=== PATIENT | female | born 1975 | race African-American/Black ===

== ENCOUNTER 2022-08-04 14:21 | Emergency (ER) | payer BC ==
[~2022-08-04] VITALS: Ht 160 cm; Wt 71.0 kg
[2022-08-04 14:38] VITALS: BP 191/95
[2022-08-04] MEDS ORDERED: ONDANSETRON HCL 4MG/2ML INJ IV STA (16:21)
[2022-08-04] MEDS ORDERED: SODIUM CHLORIDE 0.9% 1,000 ML IV ONE (16:30)
[2022-08-04 16:41] LABS: BASOPHILS % 0.4 % (0.0-2.0); EOSINOPHILS % 0.1 % (0.0-5.0); HEMATOCRIT. 38.9 % (36.0-48.0); HEMOGLOBIN. 12.9 g/dL (12.0-16.0); LYMPHOCYTES % 16.7 % (20.0-50.0); MEAN CORPUSCULAR HEMOGLOBIN 30.6 pg (28.0-32.0); MEAN PLATELET VOLUME 8.9 fl (7.4-10.4); MONOCYTES % 7.3 % (2.0-8.0); NEUTROPHILS % 75.5 % (40.0-76.0); PLATELET 172 x1000/uL (130-400); RED BLOOD CELL COUNT 4.23 mill/uL (4.2-5.4)
[2022-08-04 16:47] LABS: CHLORIDE 98 mEq/L (98-107)
[2022-08-04 17:25] LABS: CLARITY URINE CLOUDY (CLEAR); COLOR URINE ORANGE (YELLOW); KETONES URINE 3+ (NEGATIVE); LEUKOCYTE ESTERASE URINE TRACE (NEGATIVE); NITRITE URINE NEGATIVE (NEGATIVE); OCCULT BLOOD URINE 3+ (NEGATIVE); PROTEIN URINE 4+ (NEGATIVE); SPECIFIC GRAVITY URINE 1.049 (1.005-1.030)
[2022-08-04] MEDS ORDERED: ONDA4TAB50 MT (20:12)
[2022-08-04] MEDS ORDERED: ONDANSETRON 4MG ODT PO ONE (21:00)
== END 2022-08-04 21:16 | disposition home or self-care (01) ==
LOC: ER 14:43
DX: K52.9 Noninfective gastroenteritis and colitis, unspecified (principal)
CPT/HCPCS: 36415; 76705; 80053; 81003; 81025; 85025; 96374; 99285; J2405; J7030